=== PATIENT | female | born 1960 | race Asian ===

== ENCOUNTER 2023-03-02 06:14 | Inpatient (IN) | payer BC ==
[~2023-03-02] VITALS: Ht 154.9 cm; Wt 76.2 kg
[2023-03-02] MEDS ORDERED: CEFAZOLIN SOD 2 GM in D5W 50 ML IV ONE (07:00)
[2023-03-02] MEDS ORDERED: NS IRRIG SOLN 1000 ML IR ONE (07:40)
[2023-03-02] MEDS ORDERED: KETOROLAC TROMETHAMINE 30 MG VIAL ONE (07:40)
[2023-03-02] MEDS ORDERED: fentaNYL CITRATE/PF 100 MCG/2 ML AMP ONE (07:40)
[2023-03-02] MEDS ORDERED: NS 1000 ML IV.SOLN IV ONE (07:40)
[2023-03-02] MEDS ORDERED: cefOXitin SODIUM 2 GM/VIAL (MEFOXIN) ONE (07:40)
[2023-03-02] MEDS ORDERED: LR 1,000 ML IV.SOLN IV ONE (07:40)
[2023-03-02] MEDS ORDERED: MIDAZOLAM HCL/PF 2 MG/2 ML SYRINGE ONE (07:40)
[2023-03-02] MEDS ORDERED: NS 100 ML BAG ONE (07:40)
[2023-03-02] MEDS ORDERED: DEXAMETHASONE SOD PHOSPHATE 4 MG/ML VIAL ONE (07:40)
[2023-03-02] MEDS ORDERED: SEVOFLURANE 15 MIN GAS INH ONE (07:40)
[2023-03-02] MEDS ORDERED: PROPOFOL 200MG/ 20ML VIAL (DIPRIVAN) IV ONE (07:40)
[2023-03-02] MEDS ORDERED: SUGAMMADEX SODIUM 200 MG/2 ML VIAL IV ONE (07:40)
[2023-03-02] MEDS ORDERED: HYDROMORPHONE HCL IN 0.9% NACL 0.2 MG/ML DRIP IV ONE (07:40)
[2023-03-02] MEDS ORDERED: DESFLURANE 15 MIN GAS INH ONE (07:40)
[2023-03-02] MEDS ORDERED: ROCURONIUM BROMIDE 10 MG/ML (ZEMURON) ONE (07:40)
[2023-03-02] MEDS ORDERED: BUPIVACAINE LIPOSOME/PF 266 MG/20 ML VIAL INFIL ONE (08:20)
[2023-03-02] MEDS: D5/0.45 NS 1,000 ML IV SCH ×3 (12:45→20:47)
[2023-03-02] MEDS ORDERED: HYDROmorphone 1 MG/ML INJ. CARTRIDGE IVP PRN ×2 (12:45→13:15)
[2023-03-02] MEDS ORDERED: HYDROcodone/ACETAMIN 5-325 MG TAB (NORCO/ VICODIN) PO PRN ×2 (12:45)
[2023-03-02] MEDS ORDERED: ACETAMINOPHEN 325 MG TABLET PO PRN (12:45)
[2023-03-02] MEDS ORDERED: ONDANSETRON HCL 4 MG/2 ML VIAL IVP PRN ×2 (12:45→13:15)
[2023-03-02] MEDS ORDERED: MULT-1089 PO (12:51)
[2023-03-02 13:12] LABS: HEMATOCRIT 35.9 % (36-48); HEMOGLOBIN 11.7 g/dL (12.0-16.0)
[2023-03-02] MEDS ORDERED: MEPERIDINE HCL/PF 25 MG/ML DISP.SYRIN IVP PRN (13:15)
[2023-03-02] MEDS ORDERED: KETOROLAC TROMETHAMINE 30 MG VIAL IVP PRN (13:15)
[2023-03-02] MEDS ORDERED: LR 1,000 ML IV SCH (13:15)
[2023-03-02 13:25] LABS: CALCIUM 7.8 mg/dL (8.4-11.0); CREATININE 0.65 mg/dL (0.55-1.30)
[2023-03-02] MEDS ORDERED: HYDROmorphone 1 MG/ML INJ. CARTRIDGE ONE (14:10)
[2023-03-02 14:48] VITALS: BP_SYST 154; PULSE 101; RESP 17; TEMP 96.3; O2SAT 99
[2023-03-02 15:04] VITALS: BP_SYST 154; PULSE 101; RESP 17; TEMP 96.3; O2SAT 99
[2023-03-02 20:00] VITALS: BP_SYST 151; PULSE 92; RESP 18; TEMP 97.1; O2SAT 99
[2023-03-02] MEDS: cefOXitin SODIUM 2 GM in D5W 100 ML IV SCH (20:47)
[2023-03-02] MEDS: FAMOTIDINE PF 20 MG/2 ML VIAL IVP SCH (20:47)
[2023-03-02 22:00] VITALS: O2SAT 99
[2023-03-03] VITALS (7 sets, daily range): BP systolic 128–136; PULSE 78–94; RESP 15–17; TEMP 96.9–98.2; O2SAT 17–99
[2023-03-03] MEDS: D5/0.45 NS 1,000 ML IV SCH ×2 (03:17→19:00)
[2023-03-03 05:57] LABS: BASOPHILS % (AUTO) 0.1 % (0.0-2.0); HEMATOCRIT 31.7 % (36-48); HEMOGLOBIN 10.5 g/dL (12.0-16.0); LYMPHOCYTES # (AUTO) 0.5 K/uL (1.0-5.5); LYMPHOCYTES % (AUTO) 5.9 % (20.5-51.5); MEAN CORPUSCULAR HEMOGLOBIN 32 pg (27-31); MEAN CORPUSCULAR HGB CONC 33 % (32-36); MEAN CORPUSCULAR VOLUME 95 fL (79.0-98.0); MONOCYTES # (AUTO) 0.7 K/uL (0.0-1.0); MONOCYTES % (AUTO) 8.3 % (1.7-9.3); NEUTROPHILS # (AUTO) 7.3 K/uL (1.8-7.7); NEUTROPHILS % (AUTO) 85.7 % (40.0-70.0); PLATELET COUNT (AUTO) 248 K/uL (130-430); RED BLOOD CELL COUNT(AUTO) 3.34 MIL/uL (4.2-6.2); WHITE BLOOD COUNT (AUTO) 8.5 K/uL (4.8-10.8)
[2023-03-03 06:20] LABS: ALBUMIN 2.8 g/dL (3.4-4.8); CALCIUM 7.8 mg/dL (8.4-11.0); CREATININE 0.63 mg/dL (0.55-1.30); POTASSIUM 3.2 mmol/L (3.5-5.1); TOTAL BILIRUBIN 0.7 mg/dL (0.0-1.0)
[2023-03-03] MEDS ORDERED: ENOXAPARIN SODIUM 30 MG/0.3 ML SYRINGE SUBCUT SCH (09:00)
[2023-03-03] MEDS: cefOXitin SODIUM 2 GM in D5W 100 ML IV SCH (09:14)
[2023-03-03] MEDS: FAMOTIDINE PF 20 MG/2 ML VIAL IVP SCH ×2 (09:14→20:16)
[2023-03-03] MEDS: METOCLOPRAMIDE HCL 10 MG/2 ML VIAL IVP SCH (17:46)
[2023-03-04] MEDS: METOCLOPRAMIDE HCL 10 MG/2 ML VIAL IVP SCH ×4 (00:07→17:40)
[2023-03-04 00:22] VITALS: BP_SYST 140; PULSE 83; RESP 17; TEMP 97.6; O2SAT 94
[2023-03-04] MEDS: D5/0.45 NS 1,000 ML IV SCH ×2 (03:35→21:14)
[2023-03-04 08:00] VITALS: BP_SYST 124; PULSE 90; RESP 17; TEMP 97.6; O2SAT 97
[2023-03-04] MEDS: ENOXAPARIN SODIUM 40 MG/0.4 ML SYRINGE SUBCUT SCH (09:00)
[2023-03-04] MEDS: FAMOTIDINE PF 20 MG/2 ML VIAL IVP SCH ×2 (09:21→21:09)
[2023-03-04 12:30] VITALS: BP_SYST 134; PULSE 79; RESP 18; TEMP 96.9; O2SAT 98
[2023-03-04 13:40] VITALS: O2SAT 96
[2023-03-04 19:00] VITALS: BP_SYST 149; PULSE 82; RESP 18; TEMP 99.3; O2SAT 97
[2023-03-04 20:00] VITALS: BP_SYST 149; PULSE 82; RESP 18; TEMP 99.3; O2SAT 97
[2023-03-05] VITALS: BP_SYST 143; PULSE 76; RESP 16; TEMP 97.9; O2SAT 98
[2023-03-05] MEDS: METOCLOPRAMIDE HCL 10 MG/2 ML VIAL IVP SCH ×2 (00:03→05:37)
[2023-03-05] MEDS: D5/0.45 NS 1,000 ML IV SCH (00:08)
[2023-03-05] MEDS: ENOXAPARIN SODIUM 40 MG/0.4 ML SYRINGE SUBCUT SCH (09:00)
[2023-03-05] MEDS: FAMOTIDINE PF 20 MG/2 ML VIAL IVP SCH (09:17)
[2023-03-05 09:57] VITALS: O2SAT 96
[2023-03-05 12:10] VITALS: BP_SYST 132; PULSE 90; RESP 17; TEMP 98.6; O2SAT 97
== END 2023-03-05 15:32 | disposition home health service (06) | DRG 331 ==
LOC: SDS 06:14 → SMU 06:15 → SDS 08:15 → SMU 12:47 → SDS 03-05 15:32 → SMU 03-05 15:32
PROVIDERS: ADMIT Colon & Rectal Surgery; ATTEND Colon & Rectal Surgery
PROC: 0D1B4Z4 Bypass Ileum to Cutaneous, Percutaneous Endoscopic Approach (ICD-10-PCS; 2023-03-02)
PROC: 0DBN4ZZ Excision of Sigmoid Colon, Percutaneous Endoscopic Approach (ICD-10-PCS; 2023-03-02)
PROC: 0DJD8ZZ Inspection of Lower Intestinal Tract, Via Natural or Artificial Opening Endoscopic (ICD-10-PCS; 2023-03-02)
PROC: 3E0T3BZ Introduction of Anesthetic Agent into Peripheral Nerves and Plexi, Percutaneous Approach (ICD-10-PCS; 2023-03-02)
PROC: 0DTP4ZZ Resection of Rectum, Percutaneous Endoscopic Approach (ICD-10-PCS; principal; 2023-03-02 07:40)
DX: C20 Malignant neoplasm of rectum (principal); Z87.891 Personal history of nicotine dependence; Z80.3 Family history of malignant neoplasm of breast; Z80.41 Family history of malignant neoplasm of ovary; Z79.899 Other long term (current) drug therapy; Z92.21 Personal history of antineoplastic chemotherapy; Z92.3 Personal history of irradiation
CPT/HCPCS: 36415; 80048; 80053; 85018; 85025; 87081; 88307; 97110-GP; 97116-GP; 97163-GP; 97530-GP; A4371; A4409; A4421; A5061; C1727; C9290; J0690; J0694; J1100; J1170; J1650; J1885; J2704; J2765; J3010; J3465; J3490; J7030; J7060; J7120

== ENCOUNTER 2023-03-05 19:45 | Emergency (ER) | payer BC ==
[~2023-03-05] VITALS: Ht 165.1 cm; Wt 70.3 kg
[~2023-03-05 19:45] MED LIST: MULT-1089 PO
[2023-03-05 20:13] VITALS: BP_SYST 155; PULSE 89; RESP 16; TEMP 97.9; O2SAT 98
[2023-03-05 21:46] VITALS: BP_SYST 155; PULSE 89; RESP 16; TEMP 97.9; O2SAT 98
== END 2023-03-05 21:46 | disposition home or self-care (01) ==
LOC: SED 19:45
DX: Z93.2 Ileostomy status (principal); Z79.899 Other long term (current) drug therapy
CPT/HCPCS: 99281

== ENCOUNTER 2023-06-28 06:00 | Inpatient (IN) | payer BC ==
[~2023-06-28] VITALS: Ht 165.1 cm; Wt 68.0 kg
[2023-06-28] MEDS ORDERED: CLINDAMYCIN PHOS 900 MG/ D5W 50 ML PREMIX IV ONE (07:00)
[2023-06-28] MEDS ORDERED: CEFAZOLIN SOD 2 GM in D5W 50 ML IV ONE (07:00)
[2023-06-28] MEDS ORDERED: MIDAZOLAM HCL 2 MG/2 ML VIAL (VERSED) ONE (07:17)
[2023-06-28] MEDS ORDERED: fentaNYL CITRATE/PF 100 MCG/2 ML AMP ONE ×2 (07:18→09:20)
[2023-06-28] MEDS ORDERED: MEPERIDINE HCL/PF 25 MG/ML DISP.SYRIN ONE (07:23)
[2023-06-28 07:24] LABS: BILIRUBIN,URINE NEGATIVE (NEGATIVE); CLARITY/URINE CLEAR (CLEAR); COLOR,URINE YELLOW (YELLOW); GLUCOSE,URINE NEGATIVE (NEGATIVE); KETONES,URINE NEGATIVE (NEGATIVE); LEUKOCYTE ESTERASE ,URINE NEGATIVE (NEGATIVE); NITRITE, URINE NEGATIVE (NEGATIVE); PH,URINE 5.5 (5.0-8.0); PROTEIN URINE NEGATIVE (NEGATIVE); UROBILINOGEN,URINE 0.2 (0.2-1.0)
[2023-06-28 07:28] LABS: PROTHROMBIN TIME 9.9 SECS (9.5-12.5)
[2023-06-28 07:29] LABS: BLOOD, URINE TRACE (NEGATIVE)
[2023-06-28 07:45] LABS: BACTERIA,URINE RARE /HPF (None Seen)
[2023-06-28] MEDS ORDERED: LIDOCAINE 2%, 20 ML MDV ONE (07:50)
[2023-06-28] MEDS ORDERED: SUCCINYLCHOLINE CHLORIDE 20 MG/ML(QUELICIN) ONE (07:50)
[2023-06-28] MEDS ORDERED: PROPOFOL 200MG/ 20ML VIAL (DIPRIVAN) IV ONE (07:50)
[2023-06-28] MEDS ORDERED: KETOROLAC TROMETHAMINE 30 MG VIAL ONE (07:50)
[2023-06-28] MEDS ORDERED: ROCURONIUM BROMIDE 10 MG/ML (ZEMURON) ONE (07:50)
[2023-06-28] MEDS ORDERED: SEVOFLURANE 15 MIN GAS INH ONE (07:50)
[2023-06-28] MEDS ORDERED: ONDANSETRON HCL 4 MG/2 ML VIAL ONE (07:50)
[2023-06-28] MEDS ORDERED: NS IRRIG SOLN 1000 ML IR ONE (07:50)
[2023-06-28] MEDS ORDERED: MULT-1117 PO (08:07)
[2023-06-28] MEDS ORDERED: MEPERIDINE HCL/PF 25 MG/ML DISP.SYRIN IVP PRN (10:45)
[2023-06-28] MEDS ORDERED: LR 1,000 ML IV SCH (11:00)
[2023-06-28] MEDS ORDERED: HYDROcodone/ACETAMIN 5-325 MG TAB (NORCO/ VICODIN) PO PRN ×2 (11:15)
[2023-06-28] MEDS ORDERED: ONDANSETRON HCL 4 MG/2 ML VIAL IVP PRN (11:15)
[2023-06-28] MEDS ORDERED: NALOXONE HCL 0.4 MG/ML AMP (NARCAN) IVP PRN ×3 (11:15)
[2023-06-28] MEDS ORDERED: HYDROmorphone 1 MG/ML INJ. CARTRIDGE IVP PRN (11:15)
[2023-06-28] MEDS ORDERED: ACETAMINOPHEN 325 MG TABLET PO PRN (11:15)
[2023-06-28 15:25] VITALS: BP_SYST 148; PULSE 90; RESP 16; TEMP 97.3; O2SAT 100
[2023-06-28 16:00] VITALS: BP_SYST 143; PULSE 88; RESP 16; TEMP 97.5; O2SAT 100
[2023-06-28] MEDS: D5/0.45 NS 1,000 ML IV SCH ×2 (16:34→21:03)
[2023-06-28] MEDS: METOCLOPRAMIDE HCL 10 MG/2 ML VIAL IVP SCH ×2 (16:35→18:36)
[2023-06-28 20:00] VITALS: BP_SYST 129; PULSE 80; RESP 18; TEMP 98.2; O2SAT 100; O2SAT 93
[2023-06-28] MEDS: FAMOTIDINE PF 20 MG/2 ML VIAL IVP SCH (21:02)
[2023-06-28] MEDS: cefOXitin SODIUM 2 GM in D5W 100 ML IV SCH (21:02)
[2023-06-29 00:07] VITALS: BP_SYST 119; PULSE 72; RESP 15; TEMP 98.1; O2SAT 98
[2023-06-29] MEDS: METOCLOPRAMIDE HCL 10 MG/2 ML VIAL IVP SCH ×4 (00:47→23:53)
[2023-06-29] MEDS: cefOXitin SODIUM 2 GM in D5W 100 ML IV SCH (09:39)
[2023-06-29] MEDS: FAMOTIDINE PF 20 MG/2 ML VIAL IVP SCH ×2 (09:39→21:00)
[2023-06-29] MEDS: D5/0.45 NS 1,000 ML IV SCH ×2 (09:41→23:43)
[2023-06-29 11:11] VITALS: BP_SYST 145; PULSE 65; RESP 16; TEMP 97.6; O2SAT 96
[2023-06-29 11:14] VITALS: BP_SYST 137; PULSE 65; RESP 18; TEMP 97.9; O2SAT 98
[2023-06-29 15:08] VITALS: BP_SYST 141; PULSE 66; RESP 16; TEMP 97.7; O2SAT 99
[2023-06-29 20:00] VITALS: BP_SYST 148; PULSE 66; RESP 18; TEMP 98.6; O2SAT 97
[2023-06-30] VITALS: BP_SYST 135; PULSE 81; RESP 17; RESP 18; TEMP 99.2; O2SAT 96
[2023-06-30] MEDS: D5/0.45 NS 1,000 ML IV SCH (03:15)
[2023-06-30] MEDS: METOCLOPRAMIDE HCL 10 MG/2 ML VIAL IVP SCH ×2 (05:53→12:00)
[2023-06-30] MEDS: FAMOTIDINE PF 20 MG/2 ML VIAL IVP SCH (09:24)
[2023-06-30 10:08] VITALS: BP_SYST 134; PULSE 73; RESP 16; TEMP 98.5; O2SAT 97
[2023-06-30 10:32] VITALS: O2SAT 97
[2023-06-30 10:47] VITALS: BP_SYST 134; PULSE 73; RESP 16; TEMP 98.5; O2SAT 97
== END 2023-06-30 14:59 | disposition home or self-care (01) | DRG 331 ==
LOC: SMU 06:00 → EDSTATUS 07:30 → SMU 14:57
PROVIDERS: ADMIT Colon & Rectal Surgery; ATTEND Colon & Rectal Surgery
PROC: 0DB80ZZ Excision of Small Intestine, Open Approach (ICD-10-PCS; 2023-06-28)
PROC: 0DBB0ZZ Excision of Ileum, Open Approach (ICD-10-PCS; principal; 2023-06-28 07:45)
DX: C20 Malignant neoplasm of rectum (principal); Z93.2 Ileostomy status
CPT/HCPCS: 36415; 81000; 81001; 81015; 85610-TC; 85730-TC; 86886; 86900; 86901; 87081; 87086; 88304; 88307; J0330; J0690; J0694; J1885; J2001; J2175; J2405; J2704; J2765; J3010; J3465; J3490; J7060